=== PATIENT | male | born 1960 | race Two or more races ===

== ENCOUNTER → 2022-03-10 | Emergency (ER) | payer BC ==
[~2022-03-10] VITALS: Ht 182.9 cm; Wt 93.0 kg
== END | disposition home or self-care (01) ==
LOC: ER 10:46
DX: J32.9 Chronic sinusitis, unspecified (principal); Z88.0 Allergy status to penicillin

== ENCOUNTER 2022-03-15 12:55 | Emergency (ER) | payer BC ==
[~2022-03-15] VITALS: Ht 182.9 cm; Wt 95.3 kg
== END 2022-03-15 17:50 | disposition home or self-care (01) ==
LOC: ER 12:55
DX: I10 Essential (primary) hypertension (principal); B34.9 Viral infection, unspecified; Z20.822 Contact with and (suspected) exposure to COVID-19; Z88.0 Allergy status to penicillin